=== PATIENT | male | born 1950 | race Caucasian/White ===

== ENCOUNTER 2019-11-29 04:25 | Observation (INO) | payer MEDICARE, OTHER, SELFPAY ==
[2019-11-29] VITALS (13 sets, daily range): BP systolic 119–143; BP diastolic 68–89; PULSE 56–88; RESP 12–18; TEMP 36.2–36.4; O2SAT 94–100; BMI 30.1
--- NOTE | ~2019-11-29 | XR_ITS ---
EXAMINATION: XR chest 2V DATE: 11/29/2019 04:46 INDICATION: Fall and seizure TECHNIQUE: frontal and lateral views of the chest were obtained. COMPARISON: None FINDINGS: Airspace opacities at the posterior lung bases. No pleural effusion or pneumothorax. The cardiomedias tinal silhouette is within normal limits for AP technique. Mild to moderate thoracolumbar spondylosis . IMPRESSION: 1. Opacities in the posterior lower lung zones which could represent aspiration, pneumonia, atelectas is or some combination thereof. Reviewed, dictated and finalized at location A. UNT COLLECTOR IMPRESSION: 1. Opacities in the posterior lower lung zones which could represent aspiration , pneumonia, atelectasis or some combination thereof.
--- NOTE | ~2019-11-29 | MR_ITS ---
EXAMINATION: MR brain/brain stem wo con DATE: 11/29/2019 15:11 INDICATION: Dementia. Fall. TECHNIQUE: Magnetic resonance imaging (MRI) of the brain and brainstem was performed without intraven ous contrast. Sequences included sagittal and axial T1-weighted FSE, axial diffusion-weighted FS EPI, axial T2*-weighted GRE, axial T2-weighted FLAIR Propeller, and axial T2-weighted Propeller. Apparent diffusion coefficient (ADC) maps were created. COMPARISON: Brain MRI 06/04/2018, head CT 11/29/2019 FINDINGS: There are scattered areas of nonspecific increased T2-weighted signal intensity in the cere bral white matter and victorina, which is within normal limits for the patient's age. There is no intracra nial hemorrhage, acute infarction, or abnormal intracranial mass lesion. The ventricles are normal in size. The paranasal sinuses are clear. The orbits are normal. The mastoid air cells are normal. IMPRESSION: 1. Normal aging brain. Reviewed, dictated and finalized at location A. MECHANIC IMPRESSION: 1. Normal aging brain.
--- NOTE | ~2019-11-29 | CT_ITS ---
EXAMINATION: CT chest wo con DATE: 11/29/2019 15:25 INDICATION: Abnormal chest radiograph TECHNIQUE: Computed tomography (CT) of the chest was performed without intravenous contrast. The dose -length product (DLP) was 895.37 mGy-cm. Automated exposure control and iterative reconstruction tech nique were employed. COMPARISON: None FINDINGS: There is mild dependent atelectasis. No focal airspace opacity is identified. There is no p leural effusion or pneumothorax. Cardiomegaly is noted. There are coronary artery stents. There are n o pathologically enlarged thoracic lymph nodes. There is moderate thoracic spondylosis. IMPRESSION: 1. Mild dependent atelectasis. 2. Cardiomegaly. Reviewed, dictated and finalized at location A. GRAPHICAL SURVEYOR
--- NOTE | ~2019-11-29 | CT_ITS ---
EXAMINATION: CT thoracic lumbar wo con DATE: 11/29/2019 15:25 INDICATION: Thoracic back pain. Fall. TECHNIQUE: Computed tomography (CT) of the thoracic and lumbar spine was performed without intravenou s contrast. Automated exposure control and iterative reconstruction technique were employed. The dose -length product was 895.37 mGy-cm. COMPARISON: None FINDINGS: THORACIC SPINE CT: Bone alignment is normal. Vertebral body heights are normal. There is mildly decre ased disc height at T3-T4, T4-T5 and T5-T6, and T11-T12. There is multilevel facet joint osteoarthrit is bilaterally, severe at many levels. There is multilevel mild neural foraminal stenosis bilaterally . There is moderate right neural foraminal stenosis at T3-T4 and T4-T5 and moderate left neural danny inal stenosis at T3-T4. No central canal stenosis. LUMBAR SPINE CT: There is 7 degrees levocurvature of lumbar spine. Vertebral body heights are normal. There is mildly decreased disc height at L1-L2, L2-L3, and L3-L4 and severely decreased disc height at L5-S1. The following disc levels are specifically discussed: L1-L2: The disc is bulging. There is mild bilateral facet joint osteoarthritis. There is mild bilater al neural foraminal stenosis. There is mild central canal stenosis. L2-L3: The disc is bulging. There is mild bilateral facet joint osteoarthritis. There is mild bilater al neural foraminal stenosis. There is mild central canal stenosis. L3-L4: The disc is bulging. There is severe right and moderate left facet joint osteoarthritis. There is mild bilateral neural foraminal stenosis. There is mild central canal stenosis. L4-L5: The disc is bulging. There is severe bilateral facet joint osteoarthritis. There is mild bilat eral neural foraminal stenosis. There is mild central canal stenosis. L5-S1: The disc is bulging. There is moderate bilateral facet joint osteoarthritis. There is mild skylar ateral neural foraminal stenosis. There is mild central canal stenosis. IMPRESSION: 1. No fracture. 2. Moderate thoracic spondylosis and severe lower lumbar spondylosis. Reviewed, dictated and finalized at location A. T WORKER
--- NOTE | ~2019-11-29 | CT_ITS ---
EXAMINATION: CT brain wo con, CT cervical spine wo con EXAM DATE: 11/29/2019 04:44 INDICATION: Fall, seizure. Loss of consciousness. Head injury. On blood thinners. TECHNIQUE: Spiral CT of the head was performed without contrast. Axial, coronal and sagittal images were reviewed. Spiral CT of the cervical spine was performed without contrast. Axial images were rev iewed. Coronal and sagittal reformatted images were also reviewed. The dose-length product (DLP) fo r this examination was 681.00 (accession [id number]), 419.52 (accession [id number]) mGy-cm. The exposure was tailored according to patient size, and iterative reconstruction (ASIR) was used as additional dose reduction technique. Comparison is made to prior examination from 10/21/2018. FINDINGS: HEAD CT: There is no acute intraparenchymal hemorrhage. No evidence of intraparenchymal brain mass l esion. No evidence of acute infarction. There is mild periventricular and subcortical hypodensity, n onspecific but probably related to small vessel ischemic disease. There is mild prominence of the s ulci and ventricles related to cerebral atrophy. No There is intracranial carotid arteriosclerosis. There is no mass effect or midline shift. There is no obstructive hydrocephalus suspected. There a re no extra-axial collections. There are no acute calvarial fractures. The orbits are unremarkable. Soft tissue is unremarkable. The visualized sinuses and mastoid air cells are well aerated. Ther e is no significant interval change. CERVICAL CT: Advanced facet arthropathy. There is no evidence of acute cervical fracture. The odonto id process is intact. Pre-dens space is normal. Prevertebral soft tissue is normal. There are no s oft tissue abnormalities identified. There is no disc space widening or traumatic vertebral body sub luxation suspected. Moderate disc disease at C6-7. A detailed level by level evaluation of spondyl osis can be added as addendum if requested. There is no significant interval change. IMPRESSION: 1. No acute intracranial or cervical findings. 2. Age-related intracranial findings. 3. Facet arthropathy. Reviewed, dictated and finalized at location B. NO WORKER IMPRESSION: 1. No acute intracranial or cervical findings. 2. Age-related intracranial findings. 3. Facet arthropathy.
--- NOTE | 2019-11-29 04:21 | ECG_ITS ---
Measurements Intervals [place] Rate: 62 P: 39 NV: 211 QRS: -15 QRSD: 110 T: 14 QT: 452 QTc: 462 Interpretive Statements SINUS RHYTHM WITH FIRST DEGREE AV BLOCK INCOMPLETE RIGHT BUNDLE BRANCH BLOCK BORDERLINE T WAVE ABNORMALITY- INFERIOR LEADS BASELINE ARTIFACT- I, II, III, AVL, AVF, V1-V3 ABNORMAL ECG Electronically Signed On 11-29-2019 7:13:49 PERISHABLE FRUIT INSPECTOR by Dimitri Mccarthy D.O.
--- NOTE | 2019-11-29 04:21 | ED.GENADULT ---
HPI - General Adult General Chief complaint: Altered Mental Status Stated complaint: seizure Source: family and EMS Mode of arrival: EMS Limitations: dementia History of Present Illness HPI narrative: Patient presents to the emergency department via EMS after patient was found down on the bathroom floor shaking activity. Reportedly, patient's found him laying on the floor in the bathroom, eyes closed, shaking upper and lower extremities. No urinary incontinence or tongue biting. Patient does not have a history of seizures. EMS was called, patient was transported alert, not oriented to place or time. Patient is oriented to person only. Patient does have a history of Alzheimer dementia. Per , patient is anticoagulated with warfarin due to history of recurrent blood clots and pulmonary emboli. Last INR was 2.8 per patient's . Patient's denies any recent illnesses or fever. No new medication changes. She states that he has a history of frequent falls. Related Data Home Medications Medication Instructions Recorded Confirmed amlodipine 5 mg tablet 5 mg PO DAILY 10/28/19 ascorbic acid (vitamin C) 1,000 mg 1 gm PO DAILY 10/28/19 tablet aspirin 81 mg tablet,delayed 81 mg PO DAILY 10/28/19 release citalopram 20 mg tablet 20 mg PO DAILY 10/28/19 clonazepam 0.5 mg tablet 0.5 mg PO DAILY PRN 10/28/19 cyanocobalamin (vitamin B-12) 1,000 mcg PO DAILY 10/28/19 1,000 mcg tablet ezetimibe 10 mg tablet 10 mg PO DAILY 10/28/19 glucosamine sulfate 1,000 mg 1,000 mg PO BID 10/28/19 capsule melatonin 10 mg tablet PO DAILY tablet 10/28/19 memantine 10 mg tablet 10 mg PO BID 10/28/19 multivitamin 1 cap PO DAILY 10/28/19 quetiapine 25 mg tablet 25 mg PO DAILY tablet 10/28/19 warfarin 6 mg tablet 6 mg PO DAILY tablet 10/28/19 atorvastatin 40 mg PO DAILY 11/29/19 furosemide 40 mg PO DAILY 11/29/19 lisinopril 20 mg PO DAILY 11/29/19 metoprolol succinate 50 mg PO BID 11/29/19 spironolactone 25 mg PO DAILY 11/29/19 Allergies Allergy/AdvReac Type Severity Reaction Status Date / Time Penicillins Allergy Unknown Verified 08/10/15 14:16 Review of Systems Review of Systems: ROS unobtainable: unobtainable due to mental status [facility] Past Medical History Medical History (Updated 11/29/19 @ 07:20 by Xuan Cornejo MD) A-fib Anxiety CAD (coronary artery disease) Dementia Hallucinations History of pulmonary embolism HLD (hyperlipidemia) HTN (hypertension) Insomnia KATHARINA (obstructive sleep apnea) Wellness examination Social History Social History Smoking status: Never smoker Alcohol intake: never Substance use: never Gender identity (if verbalized by the patient): Male Spiritual care concerns: No Agree to blood products: Yes Exam Narrative: Exam Narrative: GENERAL: Awake, alert HEAD: Normocephalic, abrasion to the chin, right forehead EYES: 1+ PERRLA and EOMI. ENT: Nares clear, no rhinorrhea or epistaxis. Mucous membranes moist. NECK: Supple. No tenderness on palpation of cervical midline. No step-offs or deformities. CHEST: Clear to auscultation. No respiratory distress. HEART: Regular rate and rhythm. No murmur heard. Normal peripheral pulses. ABDOMEN: Soft, nontender, nondistended, normal active bowel sounds. EXTREMITIES: Normal range of motion. No edema. SKIN: Warm, dry, no rash. NEURO: Oriented to person, unable to follow complex commands, patient's states this is baseline. He is moving bilateral upper extremities. Moving bilateral lower extremities. No facial droop. No gaze palsy. Course Course Emergency Course: Patient presented for evaluation of possible seizure. Time of arrival, ABCs are intact and vital signs are stable. Physical exam notable for a confused patient, who is acting at nearly baseline per family, following simple commands. No focal deficits. EKG without acute ischemic changes. IV access obtained, labs are drawn. No hypoglycemia. La
[2019-11-29 04:32] LABS: Glucose Point of Care 99 (65-105)
[2019-11-29 04:59] LABS: Basophils Percent Auto 0.6 % (0.2-1.2); Eosinophils Absolute Auto 0.1 K/mm3 (0-0.3); Hematocrit 39.8 % (42.0-52.0); Hemoglobin 13.5 g/dL (14.0-18.0); Immature Granulocyte Absolute 0.04 K/mm3 (0.00-0.031); Immature Granulocyte Percent A 0.8 % (0-0.5); Lymphocytes Absolute Auto 1.17 K/mm3 (0.9-3.2); Lymphocytes Percent Auto 23.8 % (18.3-44.2); Mean Corpuscular HGB Conc 33.9 g/dl (32-36); Mean Corpuscular Hemoglobin 32.1 pg (26-34); Mean Corpuscular Volume 94.5 fl (80-100); Mean Platelet Volume 8.8 fl (7.4-10.4); Monocytes Absolute Auto 0.5 K/mm3 (0.1-0.6); Monocytes Percent Auto 9.2 % (2.6-8.5); Neutrophils Absolute Auto 3.1 K/mm3 (1.3-6.7); Neutrophils Percent Auto 63.6 % (45.5-73.1); Platelet Count Result 185 k/mm3 (150-375); Red Blood Count 4.21 M/mm3 (4.6-6.20); Red Cell Distribution Width 13.4 % (11.5-14.5); White Blood Count 4.9 K/mm3 (4.5-10.0)
[2019-11-29 05:08] LABS: Blood Urea Nitrogen 23 mg/dL (9-20); Calcium 8.7 mg/dL (8.4-10.2); Carbon Dioxide 24 mmol/L (22-30); Chloride 101 mmol/L (98-107); Estimated CRCL calculation 51 ml/min; Estimated Glomerular Filt Rate 47; Glucose 99 mg/dL (75-110); Potassium 3.9 mmol/L (3.4-5.0); Sodium 141 mmol/L (137-145)
[2019-11-29 05:19] LABS: Troponin I < 0.012 ng/mL (0.000-0.034)
[2019-11-29 05:24] LABS: INR 3.1; Prothrombin Time 31.6 Seconds (11.1-14.7)
[2019-11-29 05:25] LABS: Partial Thromboplastin Time 40.1 SECONDS (22.3-36.8)
[2019-11-29 05:55] LABS: Add Urine Microscopic? YES; Appearance Urine Clear (Clear); Bilirubin Urine Negative (Negative); Blood Urine Negative (Negative); Color Urine Straw (Yellow); Glucose Urine UA Negative (Negative); Ketones Urine Negative (Negative); Leukocyte Esterase Ur Negative LEU/UL (Negative); Mucus Urine Rare /lpf; Nitrate Urine Negative (Negative); Protein Urine Negative (Negative); RBC Urine 0-2 /hpf (0-2); Specific Grav Ur 1.012 (1.001-1.035); Squamous Epithelial Cell Urine Rare /hpf (Few); Urobilinogen Urine Negative mg/dL (<2.0); WBC Urine 0-3 /hpf
[2019-11-29] MEDS: levETIRAcetam 500 MG TABLET PO ×3 (06:19→20:37)
--- NOTE | 2019-11-29 07:52 | PM.IMHP ---
H&P: HPI History of Present Illness Chief complaint: seizure Narrative: Khalif Adamson is a 69 year old male with a history of dementia, factor V Leiden deficiency, history of clots and on chronic warfarin, who presented to the ER last night after possible seizure. The patient's said she woke up around 330 in the morning and her the patient yelling and heard him fall. She ran into the bathroom and he was laying on the floor with his head, upper torso, arms shaking and he was unresponsive. His shaking episode lasted only 1-2 minutes then afterwards he still was not responsive but he fell into a deep sleep and was snoring very loud. She is unsure if he had bitten his tongue or urinated on himself. But when she had arrived in the bathroom it appeared as if he was just done urinating. His called EMS and by the time they arrived he was still sleepy and not answering questions. She reports he does have dementia and his baseline speech is short sentences with broken words. Patient's states yesterday he was acting normal and he has not had a recent cold or flu-like symptoms. The patient is a poor historian secondary to dementia. He is currently alert and oriented x2, to self and place. The patient's family states he has an abrasion to his chin and he was complaining of some back pain. The patient's initial vitals showed temperature of 97.3?, blood pressure 125/86, heart rate 75, respiratory rate 16, oxygen saturation 94% on room air. This initial labs showed slight normocytic anemia which is at his baseline, and INR elevated at 3.1 and he is on Coumadin. BMP showed creatinine of 1.5 and BUN at 23 which is improved from labs 1 month ago. Negative troponin x2. Normal urinalysis. Chest x-ray showed opacities in the posterior lower lung zone which could represent aspiration, pneumonia, atelectasis, or combination thereof. The patient's lungs are clear to auscultation he has no symptoms of cough or shortness of breath at this time. CT head and cervical spine showed no acute intracranial or cervical findings, age-related intracranial findings and facet arthropathy. The ER doctor called the neurologist and inform them about the patient. They recommended starting Keppra with a 1000 mg p.o. loading dose insert continue 500 mg q.12. Recommended ordering an MRI and EEG for further evaluation. He was admitted into the hospital for possible seizure, further imaging, neurology consult, and telemetry monitoring will be completed. Code status: Full code Power of home weatherizing worker: , Kalli Adamson Primary care provider: SHANON Rivas Psychiatrist: Dr. Herzog Public Relations Studies Director: Dr. [facility] Review of Systems Review of Systems: Narrative: The patient denies any chest pain, shortness of breath, fever, chills, cough, nausea, vomiting, abdominal pain, leg swelling, calf pain or any other symptoms at this time. He does report back pain. ROS unobtainable: unobtainable due to mental condition PMFSH Past Medical History Medical History (Updated 11/29/19 @ 15:38 by Mare Crespo PA-C) Anxiety CAD (coronary artery disease) s/p PCI Dementia Factor V Leiden Hallucinations History of pulmonary embolism HLD (hyperlipidemia) HTN (hypertension) Insomnia KATHARINA (obstructive sleep apnea) Patients family denies him having KATHARINA anymore Surgical History Surgical History (Updated 11/29/19 @ 15:38 by Mare Crespo PA-C) H/O arthroscopic knee surgery History of cardiac cath History of colonoscopy Family History Family History (Updated 11/29/19 @ 15:39 by Mare Crespo PA-C) Sibling Hypertension Family history of diabetes mellitus in first degree relative Acute myocardial infarction Mother Patient's mother is Abdominal aneurysm Father Patient's father is Heart disease Social History Social History (Updated 11/29/19 @ 15:41 by Mare Crespo PA-C) Lina
[2019-11-29 08:29] LABS: Cholesterol 143 mg/dL (0-200); HDL Direct 29 mg/dL; Triglycerides 150 mg/dL (<150)
[2019-11-29 08:37] LABS: Troponin I < 0.012 ng/mL (0.000-0.034)
[2019-11-29 08:40] LABS: LDL Cholesterol Direct 85 mg/dL
[2019-11-29 09:40] LABS: Folic Acid > 20.0 ng/mL (2.76->20)
[2019-11-29] MEDS: AMLODIPINE BESYLATE 2.5 MG TABLET 7.5 MG PO (09:53)
[2019-11-29] MEDS: CITALOPRAM HYDROBROMIDE 10 MG TABLET 30 MG PO (09:54)
[2019-11-29] MEDS: ASCORBIC ACID 500 MG TABLET 1000 MG PO (09:54)
[2019-11-29] MEDS: EZETIMIBE 10 MG TABLET PO (09:54)
[2019-11-29] MEDS: MEMANTINE 10 MG TABLET PO ×2 (09:55→20:38)
--- NOTE | 2019-11-29 14:07 | NEURO_ITS ---
TEST: Electroencephalogram DIAGNOSIS: SEIZURE PATIENT NUMBER: [id number] DATE OF SERVICE: 11/29/2019 EEG NUMBER: [id number] CLINICAL HISTORY: Per patient's , she heard patient fall this morning about 0330. When patient was found, he was convulsing. Patient's tried to alert patient and he was unresponsive lasting for a couple of minutes. Post-ictally, the patient was very confused and unable to speak. No history of seizures. Past medical history consists of dementia, hypertension, and heart attack. CONDITION OF RECORDING: Awake EEG DESCRIPTION: Whole record consists of diffused extremely low-voltage 15-21 hertz beta activity and mixed with superimposed low-voltage EKG artifact and multiple muscle artifacts. Hyperventilation and photic stimulation not completed. Non-paroxysmal, non-focal, and non-localizing. IMPRESSION: No significant abnormalities noted in this low-voltage very fast record that is compromised by multiple muscle artifacts. MTDD
--- NOTE | 2019-11-29 15:12 | PCCCNOTE ---
On 11/29/19, the student, [Roslyn Ortez ], provided care and completed [facility] documentation on this patient. I have reviewed the student's documentation and agree with the findings.
--- NOTE | 2019-11-29 15:51 | CONS_ITS ---
DATE OF CONSULTATION: 11/29/2019 HISTORY OF PRESENT ILLNESS: This 69-year-old right-handed male has been admitted to the hospital for the complaint of a seizure in addition to the ongoing history of 1. Atrial fibrillation. 2. Anxiety. 3. Coronary artery disease. 4. Dementia with hallucinations. 5. History of pulmonary embolism. 6. Hyperlipidemia. 7. Hypertension. 8. Obstructive sleep apnea with no family history specifically of dementia. SOCIAL HISTORY: The patient himself has been not a smoker nor drinker. MEDICATIONS: At the time of admission included amlodipine 7.5 mg daily, ascorbic acid 1 g daily, citalopram 30 mg daily, ezetimibe 10 mg daily, glucosamine sulfate 1000 mg daily, melatonin 10 mg at night, memantine 10 mg twice a day, multivitamin 1 capsule daily, Seroquel 25 mg daily, Coumadin 5 mg daily obviously for the ongoing diagnosis of atrial fibrillation. PHYSICAL EXAMINATION: VITAL SIGNS: Evaluation revealed him to be afebrile, normotensive with pulse ox 98%. GENERAL: On examination, awake, alert, cooperative, in no obvious acute distress. HEENT: Head normocephalic with no cranial bruit. Ears, nose, throat examination is normal. NECK: Supple with no cervical bruit. No thyromegaly. No lymphadenopathy. HEART: Regular. LUNGS: Clear. ABDOMEN: Soft. NEUROLOGICAL: He is awake, alert. He is oriented to being in the hospital. His speech is not dysphasic, not dysarthric, not dysphonic. Pupils round, regular, reacting to light equally. [place] of vision full to threat stimuli. Extraocular movements full with no nystagmus. Facial sensation intact. Face symmetrical. Tongue midline. Uvula midline. Palate moves symmetrically upward. Motor examination revealed him to have normal strength and tone in upper and lower extremities, reflexes being 1+ and plantars downgoing. There is no evidence of gross sensory or cerebellar deficit. DIAGNOSTIC DATA: Evaluation includes the CT scan of the head which was negative for the bleed except the facet arthropathy on the CT scan of cervical spine. Routine blood studies with hemoglobin 13.5, platelet count 185, WBCs 4.9. INR 3.1, BUN 23, creatinine 1.5, GFR estimated 47, triglyceride 150, cholesterol 143, LDL 85, HDL only 29. Vitamin B12 of 607, folate more than 20. UA cloudy, otherwise clear. The patient's family was interested in knowing whether we could do the MRI of the brain or not. I will obtain the EEG 1st because most likely we are dealing with dementia with seizure. JOSUE DOWNEY M.D. PAPIER MACHE' MOLDER PAPIER MACHE' MOLDER D I MT: Indu
[2019-11-29] MEDS: QUEtiapine FUMARATE 25 MG TABLET PO (18:43)
[2019-11-29] MEDS: ACETAMINOPHEN 325 MG TABLET 650 MG PO (20:37)
[2019-11-29] MEDS: MELATONIN 5 MG TABLET 10 MG PO (20:38)
[2019-11-29] MEDS: WARFARIN (*PBKC) 5 MG TABLET PO (23:02)
[2019-11-30] VITALS: PULSE 57
[2019-11-30 04:00] VITALS: PULSE 52
[2019-11-30 06:08] LABS: Hematocrit 36.8 % (42.0-52.0); Hemoglobin 12.5 g/dL (14.0-18.0); Mean Corpuscular Hemoglobin 32.6 pg (26-34); Mean Corpuscular Volume 96.1 fl (80-100); Platelet Count Result 169 k/mm3 (150-375); Red Blood Count 3.83 M/mm3 (4.6-6.20); Red Cell Distribution Width 13.6 % (11.5-14.5); White Blood Count 6.2 K/mm3 (4.5-10.0)
[2019-11-30 06:15] LABS: INR 3.5; Prothrombin Time 34.3 Seconds (11.1-14.7)
[2019-11-30 06:25] LABS: Blood Urea Nitrogen 21 mg/dL (9-20); Calcium 8.7 mg/dL (8.4-10.2); Carbon Dioxide 29 mmol/L (22-30); Chloride 102 mmol/L (98-107); Estimated CRCL calculation 50 ml/min; Estimated Glomerular Filt Rate 47; Glucose 88 mg/dL (75-110); Potassium 4.3 mmol/L (3.4-5.0); Sodium 141 mmol/L (137-145)
[2019-11-30 06:37] VITALS: BP 113/59; PULSE 53; RESP 16; TEMP 35.9; O2SAT 100
[2019-11-30 08:00] VITALS: PULSE 55
[2019-11-30] MEDS: AMLODIPINE BESYLATE 2.5 MG TABLET 7.5 MG PO (09:01)
[2019-11-30] MEDS: EZETIMIBE 10 MG TABLET PO (09:02)
[2019-11-30] MEDS: ASCORBIC ACID 500 MG TABLET 1000 MG PO (09:02)
[2019-11-30] MEDS: CITALOPRAM HYDROBROMIDE 10 MG TABLET 30 MG PO (09:03)
[2019-11-30] MEDS: levETIRAcetam 500 MG TABLET PO (09:03)
[2019-11-30] MEDS: MEMANTINE 10 MG TABLET PO (09:03)
[2019-11-30 12:00] VITALS: PULSE 69
--- NOTE | 2019-11-30 12:01 | PC.NURSE ---
Spoke with Dr. Tracy in regards to discharge. He stated it is okay for patient to discharge from his standpoint. Patient should follow up in 6 weeks.
--- NOTE | 2019-11-30 12:26 | PM.DS ---
DS: Diagnosis Admitting Diagnosis Admitting Diagnosis: Unspecified convulsions Discharge Diagnosis (1) Seizure: Code(s): R56.9 - Unspecified convulsions Status: Acute Assessment and Plan: Possible seizure prior to arrival. The patient does have an increased risk of seizures due to chronic age-related brain changes. He was given Keppra 1000 mg p.o. in the emergency room and then started on Keppra 500 mg q.12. Neurology consulted and appreciate recommendations Spoke with Dr. Tracy and he recommended follow up with him in 6 weeks. No driving. Rec continuing Keprra 500 mg Q12. Okay for discharge from Neuro standpoint (2) Fall: Qualifiers: Encounter type: initial encounter Qualified Code(s): W19.XXXA - Unspecified fall, initial encounter Code(s): W19.XXXA - Unspecified fall, initial encounter Status: Acute Assessment and Plan: Patient did have a fall prior to arrival. He has noted trauma to his chin and right back. CT brain and spine/chest should no evidence of fracture. Mod-severe spondylosis in thoracic/lumbar spine noted. Continue Tylenol as needed for discomfort. (3) HTN (hypertension): Code(s): I10 - Essential (primary) hypertension Status: Acute Assessment and Plan: BP well controlled during stay. F/u with Float Nurse on this as outpatient. Continue home medications (4) HLD (hyperlipidemia): Code(s): E78.5 - Hyperlipidemia, unspecified Status: Acute Assessment and Plan: Fasting lipid panel ordered during stay which showed it was WNL. His LDL was 85. Will have him follow-up with his primary care provider or Float Nurse for further management (5) Dementia: Code(s): F03.90 - Unspecified dementia without behavioral disturbance Status: Acute Assessment and Plan: History of dementia and at baseline he has confusion. He was seeing Dr. Tracy but has since been following up with their psychiatrist for further medication adjustments. Continue patient's home medications and appreciate neurology's recommendations for any adjustments at this time. (6) Supratherapeutic INR: Code(s): R79.1 - Abnormal coagulation profile Status: Acute Assessment and Plan: Discussed with in room who states his Float Nurse at [facility] is aware he usually is around the 3.0 INR range; I informed her INR was 3.5 today. She states she will call the office today to discuss if they should adjust coumadin tonight. She states this is fairly common and is not usually an issue to get instructions. Further management per his Float Nurse; Follow up per his Float Nurse rec DS: Summary Hospital Course Reason for hospitalization: Seizure-like activity Hospital Course: Patient is a 69 yo M with history of dementia, factor V Leiden deficiency, and history of clots and on chronic warfarin who presented to the ER precinct commanding officer of 11/29 with reports of possible seizure activity. reported that patient woke up to hearing the patient yelling and the sound of him falling at roughly 03:30 that morning. She then found him on the bathroom floor and his head, upper torso, and arms were shaking and was unresponsive; this lasted roughly 2 minutes and then was unresponsive and seemingly fell into a deep sleep and was snoring. Unclear if patient had any mouth trauma or incontinence. EMS was called and upon arrival of EMS, patient was still lethargic and not answering questions. He was brought to the ER for further evaluation. Presenting VS: BP 125/82, HR 65, RR 14, temp 97.6, sat 98% RA Presenting Pertinent labs: H&H 13.5/29.8, MCV 94.5, INR 3.1, PT 31.6, aPTT 40.1, Cr 1.50, Fol
== END 2019-11-30 13:54 | disposition home or self-care (01) ==
LOC: ANHED 05:27 → ANH2MED 06:36
PROVIDERS: Physician Assistant; Admitting Provider Internal Medicine; Emergency Provider Emergency Medicine; PCP Family Medicine; Visit Provider Physician Assistant
DX: R56.9 Unspecified convulsions (principal); S00.81XA Abrasion of other part of head, initial encounter; M47.895 Other spondylosis, thoracolumbar region; W19.XXXA Unspecified fall, initial encounter; I10 Essential (primary) hypertension; E78.5 Hyperlipidemia, unspecified; F03.90 Unspecified dementia, unspecified severity, without behavioral disturbance, psychotic disturbance, mood disturbance, and anxiety; R79.1 Abnormal coagulation profile; I25.10 Atherosclerotic heart disease of native coronary artery without angina pectoris; I48.91 Unspecified atrial fibrillation; G47.33 Obstructive sleep apnea (adult) (pediatric); Z79.01 Long term (current) use of anticoagulants; Z86.711 Personal history of pulmonary embolism
CPT/HCPCS: 36415; 51701; 70450; 70551; 71046; 71250; 72125; 72128; 72131; 80048; 80061; 81001; 82607; 82746; 82948; 84484; 85025; 85027; 85610; 85730; 93005; 95816; 99285; A9270; G0378

== ENCOUNTER 2020-09-26 15:09 | Emergency (ER) | payer MEDICARE, OTHER, SELFPAY ==
--- NOTE | 2020-09-26 15:03 | PC.NURSE ---
Addendum entered by Adriane Hopkins RN 09/26/20 18:40: call to [phone] per EMS. EMS arrived to [place] at 1425 CPR in progress. ACLS started per EMS. patient intubated with 7.5 ETT, #18 SL placed in right AC, NS bolus started. patient has had 4 doses of Epi AIRLINE FLIGHT ATTENDANT. Morris on per EMS for compressions. patient was defibrillated x 2 per EMS for VFib on monitor. arrives to this ED in PEA. Morris machine on for compressions. respiratory at bedside bagging patient. patient placed on our defib monitor and central monitor. Dr. Roberts at bedside. per EMS ACLS has been ongoing for 45 minutes without pulse or spontaneous respirations. Original Note: EMS call. patient in cardiac arrest. arrives to this ED with Morris on, 7.[address], BVM per EMS. patient was reported to be found unresponsive by [facility] staff today. EMS
--- NOTE | 2020-09-26 15:05 | PC.NURSE ---
pulse check per Dr. Roberts. no pulse. PEA on monitor. epi given. bagging continues. carlito restarted. NS infusing in (R) AC.
--- NOTE | 2020-09-26 15:11 | PC.NURSE ---
pulse check per provider. no pulse, no spontaeous respirations, PEA on monitor. time of : [address] Roberts.
--- NOTE | 2020-09-26 15:20 | PC.NURSE ---
Dr. Roberts has spoken with family. patient was released from [facility] on Friday. discharged to [place]. last known normal per NH staff was approximately 60 minutes prior to being found unresponsive without a pulse or spontaneous respirations. patient was (+) Covid in the last 30 days.
--- NOTE | 2020-09-26 15:21 | ED.CPR ---
HPI - CPR General Stated Complaint: full arrest Time Seen by Provider: 09/26/20 15:18 Source: EMS Mode of arrival: EMS Limitations: altered mental status History of Present Illness HPI narrative: Patient 62-year-old male brought in by EMS after found being unresponsive at the group home. Last known well was 40 minutes prior to being found unresponsive by group home staff. Per EMS ACLS protocol started right away, CPR was started 10 meds prior to their arrival at the group home, initial rhythm when they arrived was asystole. Per EMS they worked on him for approximately 30 minutes, was intubated and given approximately 5 epis in route and was shocked twice patient remained in PEA throughout. Total downtime prior to arrival of the emergency room was approximately 45 to 50 minutes. Upon arrival to the emergency room patient remained in PEA. Related Data Home Medications Medication Instructions Recorded Confirmed amlodipine 5 mg tablet 7.5 mg PO DAILY 10/28/19 11/29/19 ascorbic acid (vitamin C) 1,000 mg 1 gm PO DAILY 10/28/19 11/29/19 tablet ezetimibe 10 mg tablet 10 mg PO DAILY 10/28/19 11/29/19 glucosamine sulfate 1,000 mg 1,000 mg PO DAILY 10/28/19 11/29/19 capsule melatonin 10 mg tablet 10 mg PO HS tablet 10/28/19 11/29/19 multivitamin 1 cap PO DAILY 10/28/19 11/29/19 quetiapine 25 mg tablet 25 mg PO DAILY tablet 10/28/19 11/29/19 warfarin 5 mg PO DAILY 11/29/19 11/29/19 sertraline 100 mg tablet 100 mg PO DAILY 05/11/20 Allergies Allergy/AdvReac Type Severity Reaction Status Date / Time Penicillins Allergy Unknown Anaphylactic Verified 05/11/20 13:49 Shock Review of Systems Review of Systems: ROS unobtainable: Yes unobtainable due to mental status PMFSH Past Medical History Medical History (Updated 09/26/20 @ 15:26 by Chuck Roberts MD) Anxiety CAD (coronary artery disease) s/p PCI Dementia Factor V Leiden Hallucinations History of pulmonary embolism HLD (hyperlipidemia) HTN (hypertension) Insomnia Low kidney function KATHARINA (obstructive sleep apnea) Patients family denies him having KATHARINA anymore Seizure disorder Surgical History Surgical History (Updated 11/29/19 @ 15:38 by Mare Crespo PA-C) H/O arthroscopic knee surgery History of cardiac cath History of colonoscopy Family History Family History (Updated 11/29/19 @ 15:39 by Mare Crespo PA-C) Sibling Hypertension Family history of diabetes mellitus in first degree relative Acute myocardial infarction Mother Patient's mother is Abdominal aneurysm Father Patient's father is Heart disease Social History Social History (Updated 05/11/20 @ 13:48 by Helena Young) Smoking status: Never smoker Alcohol intake: former Substance use: never Additional living arrangements comments: Lives with his in [place], [place] Additional occupation/education comments: Worked in a [employer] Gender identity (if verbalized by the patient): Male Spiritual care concerns: No Agree to blood products: Yes Exam Narrative: Exam Narrative: Exam: General: Unresponsive HEENT: Pupils fixed and dilated Respiratory: No spontaneous respiration CVS: No pulse Course Course Emergency Course: ACLS continued upon arrival to the emergency room, was given epi x1 with continuous uninterrupted cardiopulmonary resuscitation. At 1510, pronounced Mr. Adamson , patient remained in PEA, pupils fixed and dilated, no spontaneous respiration no pulse MDM - Cardiac Arrest/CPR MDM Narrative Medical decision making narrative: Time of 1510 Discharge Plan Discharge Clinical Impression: Cardiopulmonary arrest Patient Disposition: Condition: Prescriptions: No Action ascorbic acid (vitamin C) 1,000 mg tablet 1 gm PO DAILY RF: 0 glucosamine sulfate 1,000 mg capsule 1,000 mg PO DAILY RF: 0 quetiapine 25 mg tablet 25 mg PO DA
--- NOTE | 2020-09-26 15:40 | PC.NURSE ---
initial call placed to [facility].
--- NOTE | 2020-09-26 15:45 | PC.NURSE ---
Kacie with [facility] aware of expiration. ok to remove tubes and IV. call her back with information on why patient was admitted to [facility] and home information.
--- NOTE | 2020-09-26 15:53 | PC.NURSE ---
spoke with Pato at [facility]. patient's information and medical history that is available given. requests that patient be held in our morgue. not to be released to home yet.
--- NOTE | 2020-09-26 16:10 | PC.NURSE ---
Family not able to name a care home at this time; supposed to call back; name on body release form Maxine , , daughter
--- NOTE | 2020-09-26 16:20 | PC.NURSE ---
per Pato at [facility] patient is not a candidate for any donations. ok to release to home. forming fixer aware.
--- NOTE | 2020-09-26 16:41 | PC.NURSE ---
pt. to fritz; release of body form at plant puller desk awaiting family to call back with home.
--- NOTE | 2020-09-26 17:51 | PC.NURSE ---
[facility] home per family
== END 2020-09-26 16:45 | disposition expired ==
LOC: ANHED 15:36
PROVIDERS: Emergency Provider Emergency Medicine; PCP Family Medicine
DX: I46.9 Cardiac arrest, cause unspecified (principal); I25.10 Atherosclerotic heart disease of native coronary artery without angina pectoris; F03.90 Unspecified dementia, unspecified severity, without behavioral disturbance, psychotic disturbance, mood disturbance, and anxiety; D68.51 Activated protein C resistance; Z86.711 Personal history of pulmonary embolism; E78.5 Hyperlipidemia, unspecified; I10 Essential (primary) hypertension; G47.33 Obstructive sleep apnea (adult) (pediatric); G40.909 Epilepsy, unspecified, not intractable, without status epilepticus; Z79.01 Long term (current) use of anticoagulants
CPT/HCPCS: 92950; 99285; J0171; J7030